=== PATIENT | female | born 1955 | race Caucasian/White ===

== ENCOUNTER 2018-03-23 07:17 | Day surgery (SDC) | payer MEDICARE, OTHER ==
[2018-03-23] MEDS ORDERED: PROPOFOL 40 ML (08:24)
[2018-03-23] MEDS ORDERED: FENTAnyl 50 MCG/ML VIAL (08:24)
[2018-03-23] MEDS ORDERED: LIDOCAINE 2% (SDV) 5 ML INJ (08:24)
[2018-03-23] MEDS ORDERED: MIDAZOLAM 1 MG/ML 2 ML INJ (08:24)
== END 2018-03-23 10:30 | disposition home or self-care (01) ==
LOC: GIL 07:17
DX: Z12.11 Encounter for screening for malignant neoplasm of colon (principal); D12.5 Benign neoplasm of sigmoid colon; K64.8 Other hemorrhoids; K29.60 Other gastritis without bleeding; E11.9 Type 2 diabetes mellitus without complications; I25.10 Atherosclerotic heart disease of native coronary artery without angina pectoris; I10 Essential (primary) hypertension; J45.909 Unspecified asthma, uncomplicated; E03.9 Hypothyroidism, unspecified
CPT/HCPCS: 43239; 82962; 88305